=== PATIENT | male | born 1965 | race Caucasian/White ===

== ENCOUNTER → 2021-05-19 | Outpatient (CLI) | payer BC ==
[~2021-05-19] MED LIST: ALBUTEROL2.5 MG/3 M INH; HABITROL 21 MG P1 EA TD; IBUPROFEN800 MG PO; NICODERM CQ1 EAC1 TD; PREDNISONE20 MG PO; PROTONIX40 MG PO; PROVENTIL HFA6.7 GM INH; SYMBICORT 80-10.2 GM INH; ULTRAM50 MG PO; ZANTAC300 MG PO; ZITHROMAX250 MG PO
== END ==
LOC: KOH-I 10:46
DX: J20.9 Acute bronchitis, unspecified (principal)
CPT/HCPCS: 71046

== ENCOUNTER → 2021-06-30 | Outpatient (CLI) | payer BC | LOC: KOH-I 09:51 | DX: F17.210 Nicotine dependence, cigarettes, uncomplicated (principal) | CPT/HCPCS: 71271 ==

== ENCOUNTER → 2022-02-02 | Outpatient (CLI) | payer BC | LOC: KOH-I 12:44 | DX: M25.521 Pain in right elbow (principal) | CPT/HCPCS: 73080 ==